=== PATIENT | male | born 1970 | race Native Hawaiian/Other Pacific Islander ===

== ENCOUNTER 2023-02-03 09:36 | Day surgery (SDC) | payer OTHER ==
--- NOTE | 2023-02-03 08:08 | HP ---
DATE OF SURGERY: 02/03/2023 HISTORY OF PRESENT ILLNESS: The patient is a 52-year-old with no prior colonoscopy. No bloody stools. No change in bowel movements. No new pain. Family history negative for colon cancer. The patient is in need of screening colonoscopy. PAST MEDICAL HISTORY: He has some asthma in the past. Hernia in the past. PAST SURGICAL HISTORY: Transurethral resection of prostate. Bilateral rotator cuff repair. Torn meniscus repair. MEDICATIONS: Vitamin A, vitamin B12, vitamin C, vitamin D3, zinc ALLERGIES: NKDA. HORSE DANDER. FAMILY HISTORY: Alzheimer's. SOCIAL HISTORY: No smoking or alcohol abuse. REVIEW OF SYSTEMS: Fourteen systems reviewed. No chest pain or palpitations. Other systems negative or noncontributory as above and per preadmission questionnaire. PHYSICAL EXAMINATION: BMI 26.9. Height 6' 2". GENERAL: No acute distress. HEENT: Sclerae nonicteric. NECK: No JVD. CHEST: Equal excursion, nonlabored breathing. CVS: Regular rate and rhythm. ABDOMEN: Soft. No peritoneal signs. EXTREMITIES: No significant edema. NEURO: Alert, oriented, moving extremities symmetrically. RECTAL: Deferred timed to endoscopy exam. PSYCH: Appropriate mood and affect. SKIN: Dry. IMPRESSION: A patient in need of screening colonoscopy. I feel he is a candidate. He was shown the risk sheet, explained the procedure in detail including but not limited to risk of bleeding or infection, risk of bowel injury or perforation, risk of missed or nondiagnosis or incomplete exam possibly requiring barium enema, other studies or procedures, general risk of anesthesia or sedation, risk of bowel prep but not limited to, consent obtained. Will proceed with screening colonoscopy as an outpatient.
[2023-02-03] MEDS ORDERED: Lactated Ringers 1,000 ML IV SCH (10:00)
[2023-02-03] MEDS ORDERED: Lactated Ringers 1,000 ML IV ONE (10:01)
[2023-02-03] MEDS ORDERED: DIPRIVAN 200 MG/20 ML IV ONE (11:31)
[2023-02-03] MEDS ORDERED: Versed 2 MG/2 ML Injection ONE (11:31)
[2023-02-03] MEDS ORDERED: Xylocaine-Mpf 2% 5 Ml Vial ONE (11:33)
[2023-02-03 12:54] VITALS: BP 131/94; PULSE 91; O2SAT 95
--- NOTE | 2023-02-03 14:38 | OP ---
SURGERY DATE/TIME: 02/03/2023 1130 PREOPERATIVE DIAGNOSIS: Need for screening colonoscopy. POSTOPERATIVE DIAGNOSES: 1) Small early polyp versus hyperplastic lesion sigmoid colon x2. 2) Fair bowel prep. 3) Withdrawal time approximately eight minutes. PROCEDURES: 1) Colonoscopy to cecum. 2) Hot biopsy polypectomy small early polyp versus hyperplastic lesion sigmoid colon x2. SURGEON: Dr. Fermin Silveira. ELECTRICAL ENGINEERING PROFESSOR: Rich Ayala, Medical Student III. ANESTHESIA: MAC. ESTIMATED BLOOD LOSS: Minimal. INDICATIONS: As noted above. Risks and benefits explained in detail but not limited to and consent obtained. DESCRIPTION OF PROCEDURE AND FINDINGS: The patient is taken to the endoscopy room. MAC anesthesia induced. After official time out and no disagreement with planned procedure, digital rectal exam did not reveal any rectal masses. Video colonoscope inserted and passed up through the tortuous sigmoid, descending, transverse and ascending colon around to the cecum. Appendiceal orifice and valve were photo documented. Prep overall was good to fair with some liquidy semisolid stool suctioning clear as clear as possible. The scope is slowly and carefully withdrawn over the next eight minutes. No signs of any large polyps, masses or any other obstructing lesion. There was nearly a 3 mm polyp in the sigmoid colon removed with hot biopsy polypectomy in two pieces. Otherwise, two smaller polyps versus hyperplastic lesion removed with hot biopsy polypectomy from the sigmoid colon. The scope is withdrawn. No signs of any large polyps, masses or obstructing lesions. The patient tolerated the procedure well. Findings discussed with the family out in the waiting area.
== END 2023-02-03 12:55 | disposition home or self-care (01) ==
LOC: SDC 09:36
PROVIDERS: ATTEND Surgery
DX: Z12.11 Encounter for screening for malignant neoplasm of colon (principal); D12.5 Benign neoplasm of sigmoid colon
CPT/HCPCS: J2250; J2704